=== PATIENT | male | born 1945 | race Caucasian/White ===

== ENCOUNTER 2019-05-25 21:27 | Inpatient (IN) | payer MEDICARE, MEDICAID ==
[~2019-05-25] VITALS: Ht 180.3 cm; Wt 75.6 kg
[2019-05-25] MEDS ORDERED: MORPHINE SULFATE 4 MG/ML CPJ (NOT FOR IM USE) IV ONE (23:00)
[2019-05-25] MEDS ORDERED: ASPIRIN 325MG EC TABLET PO ONE (23:00)
[2019-05-25] MEDS ORDERED: NITROGLYCERIN OINT 1GM/INCH UDPKT TD ONE (23:00)
[2019-05-26] VITALS (27 sets, daily range): BP systolic 98–148; BP diastolic 37–88
[2019-05-26 00:03] LABS: BASOPHILS % 1.3 % (0.0-2.0); EOSINOPHILS % 8.7 % (0.0-5.0); HEMATOCRIT. 33.6 % (42.0-52.0); HEMOGLOBIN. 11.5 g/dL (14.0-18.0); LYMPHOCYTES % 22.3 % (20.0-50.0); MEAN CORPUSCULAR HEMOGLOBIN 27.9 pg (28.0-32.0); MEAN CORPUSCULAR VOLUME 81.4 fL (80.0-94.0); MEAN PLATELET VOLUME 7.9 fl (7.4-10.4); MONOCYTES % 8.7 % (2.0-8.0); PLATELET 244 x1000/uL (130-400); RED BLOOD CELL COUNT 4.13 mill/uL (4.7-6.1); RED CELL DISTRIBUTION WIDTH 15.3 % (11.6-14.6)
[2019-05-26 00:11] LABS: CHLORIDE 103 mEq/L (98-107)
[2019-05-26] MEDS ORDERED: NA PHOS,M-B/NA PHOS,DI-BA ENEMA 118ML PR PRN (06:15)
[2019-05-26] MEDS ORDERED: DIPHENHYDRAMINE 50MG/ML VIAL IV PRN (06:15)
[2019-05-26] MEDS ORDERED: LORAZEPAM 2MG/ML CPJ IV PRN (06:15)
[2019-05-26] MEDS ORDERED: GUAIFENESIN 200MG/10ML SUGAR FREE UDC PO PRN (06:15)
[2019-05-26] MEDS ORDERED: DOCUSATE SODIUM 100MG CAPSULE PO PRN (06:15)
[2019-05-26] MEDS ORDERED: MAGNESIUM/ALUMINUM HYDROXIDE/SIMETHICONE 30ML UDC PO PRN (06:15)
[2019-05-26] MEDS ORDERED: HYDRALAZINE 20MG/ML VIAL IV PRN (06:15)
[2019-05-26] MEDS ORDERED: IPRATROPIUM/ALBUTEROL 0.5-3(2.5)MG/3ML NEB INH PRN (06:15)
[2019-05-26] MEDS ORDERED: CLONIDINE 0.1MG TABLET PO PRN (06:15)
[2019-05-26] MEDS ORDERED: ONDANSETRON HCL 4MG/2ML INJ IV PRN (06:15)
[2019-05-26] MEDS ORDERED: ACETAMINOPHEN 325MG TABLET PO PRN (06:15)
[2019-05-26] MEDS: MORPHINE SULFATE 2 MG/ML CPJ (NOT FOR IM USE) IV PRN (06:57)
[2019-05-26] MEDS ORDERED: HYDROCODONE/ACETAMINOPHEN 10/325MG TABLET PO PRN (09:34)
[2019-05-26] MEDS: ASPIRIN 81MG EC TABLET PO SCH (10:00)
[2019-05-26] MEDS: ENOXAPARIN 40MG/0.4ML SYR SUBCUT SCH (10:30)
[2019-05-26] MEDS ORDERED: FAMOTIDINE 20MG/2ML VIAL IV SCH (10:30)
[2019-05-26] MEDS ORDERED: DIPHENHYDRAMINE 50MG/ML VIAL IV SCH (10:30)
[2019-05-26] MEDS ORDERED: HYDROCORTISONE SOD SUCCINATE 100 MG/2 ML VIAL IV SCH (10:30)
[2019-05-26] MEDS ORDERED: CLOPIDOGREL 75MG TABLET PO SCH (10:30)
[2019-05-26] MEDS ORDERED: LIDOCAINE HCL 1% 20ML VIAL (Pyxis) INJ ONE ×2 (10:57→10:58)
[2019-05-26] MEDS ORDERED: IODIXANOL 320MG/ML 200ML BOTTLE ONE (10:58)
[2019-05-26] MEDS ORDERED: HEPARIN 1,000 UNITS PREMIX 0 ML IV ONE (10:58)
[2019-05-26 11:46] LABS: CREATINE KINASE 92 IU/L (39-308)
[2019-05-26 11:47] LABS: CREATINE KINASE MB FRACTION < 1.0 ng/mL (0.5-3.6)
[2019-05-26] MEDS: TICAGRELOR 90 MG TABLET PO SCH ×2 (12:47→20:05)
[2019-05-26] MEDS: SODIUM CHLORIDE 0.9% INJ 3ML FLUSH IVF SCH ×2 (14:00→22:00)
[2019-05-26 16:37] LABS: CREATINE KINASE 96 IU/L (39-308)
[2019-05-26 16:38] LABS: CREATINE KINASE MB FRACTION < 1.0 ng/mL (0.5-3.6)
[2019-05-26] MEDS ORDERED: ATOR-2 MT (16:40)
[2019-05-26] MEDS ORDERED: TICA90TA MT (16:40)
[2019-05-26] MEDS ORDERED: LISI2.5T47 MT (16:40)
[2019-05-26] MEDS ORDERED: TOPXL5 MT (16:40)
[2019-05-26] MEDS ORDERED: ASPI-1393 PO (16:42)
[2019-05-26] MEDS ORDERED: TAMS-11 PO (16:42)
[2019-05-26] MEDS ORDERED: RANI150T7 PO (16:45)
[2019-05-26] MEDS ORDERED: GABA-531 PO (16:45)
[2019-05-26] MEDS ORDERED: GABA-531 MT (16:45)
[2019-05-26 23:19] LABS: CREATINE KINASE 86 IU/L (39-308)
[2019-05-26 23:20] LABS: CREATINE KINASE MB FRACTION < 1.0 ng/mL (0.5-3.6)
[2019-05-27] VITALS (18 sets, daily range): BP systolic 89–159; BP diastolic 46–83
[2019-05-27] MEDS: MORPHINE SULFATE 2 MG/ML CPJ (NOT FOR IM USE) IV PRN (02:30)
[2019-05-27 05:24] LABS: BASOPHILS % 1.2 % (0.0-2.0); EOSINOPHILS % 9.2 % (0.0-5.0); HEMATOCRIT. 34.2 % (42.0-52.0); HEMOGLOBIN. 11.7 g/dL (14.0-18.0); LYMPHOCYTES % 22.1 % (20.0-50.0); MEAN CORPUSCULAR HEMOGLOBIN 27.9 pg (28.0-32.0); MEAN CORPUSCULAR VOLUME 81.7 fL (80.0-94.0); MEAN PLATELET VOLUME 8.3 fl (7.4-10.4); MONOCYTES % 10.7 % (2.0-8.0); NEUTROPHILS % 56.8 % (40.0-76.0); PLATELET 241 x1000/uL (130-400); RED BLOOD CELL COUNT 4.19 mill/uL (4.7-6.1); RED CELL DISTRIBUTION WIDTH 15.2 % (11.6-14.6)
[2019-05-27 05:29] LABS: CHLORIDE 106 mEq/L (98-107)
[2019-05-27 05:44] LABS: LDL CHOLESTEROL 81 mg/dL (5-100)
[2019-05-27 05:45] LABS: T4 FREE 1.21 ng/dL (0.76-1.46)
[2019-05-27 05:48] LABS: HDL CHOLESTEROL 40 mg/dL (40-59)
[2019-05-27] MEDS: SODIUM CHLORIDE 0.9% INJ 3ML FLUSH IVF SCH ×2 (06:11→14:40)
[2019-05-27] MEDS: TICAGRELOR 90 MG TABLET PO SCH (09:32)
[2019-05-27] MEDS: ASPIRIN 81MG EC TABLET PO SCH (09:32)
[2019-05-27] MEDS: ENOXAPARIN 40MG/0.4ML SYR SUBCUT SCH (09:33)
[2019-05-27] MEDS ORDERED: LISINOPRIL 2.5MG TABLET PO SCH (10:45)
[2019-05-27] MEDS ORDERED: ATORVASTATIN CALCIUM 40MG TABLET PO SCH (21:00)
== END 2019-05-27 14:55 | disposition home or self-care (01) | DRG 391 ==
LOC: ER 23:59 → 6WST 05-26 00:09 → EDBEDREQTM 05-26 00:11 → EDBEDREQ 05-26 00:11 → ENRESERV 05-26 08:25 → MICUSO 05-26 10:16
PROVIDERS: ADMIT Internal Medicine; ATTEND Internal Medicine
DX: K21.9 Gastro-esophageal reflux disease without esophagitis (principal); G93.41 Metabolic encephalopathy; I25.110 Atherosclerotic heart disease of native coronary artery with unstable angina pectoris; I42.9 Cardiomyopathy, unspecified; I10 Essential (primary) hypertension; H91.3 Deaf nonspeaking, not elsewhere classified; R79.89 Other specified abnormal findings of blood chemistry; I25.2 Old myocardial infarction; Z79.02 Long term (current) use of antithrombotics/antiplatelets; Z79.899 Other long term (current) drug therapy; Z85.46 Personal history of malignant neoplasm of prostate; Z95.5 Presence of coronary angioplasty implant and graft; Z91.041 Radiographic dye allergy status
CPT/HCPCS: 36415; 71045; 80061; 82550; 82553; 83036; 83880; 84439; 84443; 84484; 85379; 93005; 93306; 93970; 96374; 96376; 99291; J1200; J1644; J1650; J2270; J2405; J3490; Q9967; J8499